=== PATIENT | male | born 1980 | race Caucasian/White ===

== ENCOUNTER 2022-03-01 16:29 | Emergency (ER) | payer SELFPAY ==
[~2022-03-01] VITALS: Ht 172.7 cm; Wt 108.0 kg
[2022-03-01] MEDS ORDERED: LORAZEPAM 1MG TABLET PO ONE (17:30)
[2022-03-01] MEDS ORDERED: LORAZEPAM 1MG TABLET PO NR (17:59)
[2022-03-01 18:04] LABS: BASOPHILS % 0.2 % (0.0-2.0); EOSINOPHILS % 0.1 % (0.0-5.0); HEMATOCRIT. 42.1 % (42.0-52.0); HEMOGLOBIN. 14.5 g/dL (14.0-18.0); LYMPHOCYTES % 19.3 % (20.0-50.0); MEAN CORPUSCULAR HEMOGLOBIN 29.9 pg (28.0-32.0); MEAN CORPUSCULAR VOLUME 86.8 fL (80.0-94.0); MEAN PLATELET VOLUME 7.2 fl (7.4-10.4); MONOCYTES % 12.2 % (2.0-8.0); NEUTROPHILS % 68.2 % (40.0-76.0); PLATELET 399 x1000/uL (130-400); RED BLOOD CELL COUNT 4.86 mill/uL (4.7-6.1); RED CELL DISTRIBUTION WIDTH 13.3 % (11.6-14.6)
[2022-03-01 18:13] LABS: CHLORIDE 93 mEq/L (98-107)
[2022-03-01 18:21] LABS: ETHANOL BLOOD < 10 mg/dL
[2022-03-01] MEDS ORDERED: POTASSIUM CHLORIDE 20MEQ TABLET SR PO ONE (18:45)
[2022-03-01] MEDS ORDERED: ONDANSETRON 4MG ODT PO ONE (18:45)
[2022-03-01] MEDS ORDERED: ONDANSETRON 4MG ODT PO NR (19:30)
[2022-03-01] MEDS ORDERED: POTASSIUM CHLORIDE 20MEQ TABLET SR PO NR (19:30)
[2022-03-01] MEDS ORDERED: LORAZEPAM 0.5MG TABLET PO ONE (21:00)
[2022-03-01] MEDS ORDERED: LORAZEPAM 1MG TABLET PO SCH (23:30)
[2022-03-01 23:50] VITALS: BP 124/93
== END 2022-03-01 23:59 | disposition home or self-care (01) ==
LOC: ER 16:29
DX: T43.621A Poisoning by amphetamines, accidental (unintentional), initial encounter (principal); Y92.89 Other specified places as the place of occurrence of the external cause; R00.2 Palpitations; E87.6 Hypokalemia; F17.290 Nicotine dependence, other tobacco product, uncomplicated; E11.9 Type 2 diabetes mellitus without complications; I10 Essential (primary) hypertension
CPT/HCPCS: 36415; 80053; 80320; 85025; 93005; 99284; Q0162; G0480

== ENCOUNTER 2022-06-29 22:24 | Emergency (ER) | payer SELFPAY | END 2022-06-29 23:30 | disposition left against medical advice (07) | LOC: ER 22:24 | DX: Z53.21 Procedure and treatment not carried out due to patient leaving prior to being seen by health care provider (principal) ==

== ENCOUNTER 2023-01-30 14:49 | Emergency (ER) | payer OTHER ==
[~2023-01-30] VITALS: Ht 170.2 cm; Wt 109.1 kg
[2023-01-30] MEDS ORDERED: LORAZEPAM 1MG TABLET PO ONE (15:30)
[2023-01-30 16:08] LABS: *AMPHETAMINES SCREEN URINE PRESUMTIVE POSITIVE (NEGATIVE); *BARBITURATES SCREEN URINE NEGATIVE (NEGATIVE); *BENZODIAZEPINES SCREEN URINE NEGATIVE (NEGATIVE); *COCAINE SCREEN URINE NEGATIVE (NEGATIVE); CANNABINOID URINE SCREEN NEGATIVE (NEGATIVE); METHADONE URINE SCREEN NEGATIVE (NEGATIVE); OPIATES URINE SCREEN NEGATIVE (NEGATIVE); PHENCYCLIDINE URINE SCREEN NEGATIVE (NEGATIVE)
[2023-01-30] MEDS ORDERED: LORA-250 MT (18:12)
[2023-01-30 18:32] VITALS: BP 153/78
== END 2023-01-30 18:32 | disposition home or self-care (01) ==
LOC: ER 14:58
DX: T43.621A Poisoning by amphetamines, accidental (unintentional), initial encounter (principal); Y92.89 Other specified places as the place of occurrence of the external cause; R07.89 Other chest pain; E11.9 Type 2 diabetes mellitus without complications; I10 Essential (primary) hypertension
CPT/HCPCS: 80305; 99283

== ENCOUNTER 2023-01-31 14:10 | Emergency (ER) | payer OTHER ==
[~2023-01-31] VITALS: Ht 167.6 cm; Wt 82.0 kg
[~2023-01-31 14:10] MED LIST: LORA-250 MT
[2023-01-31 14:41] VITALS: BP 145/100
== END 2023-01-31 15:20 | disposition home or self-care (01) ==
LOC: ER 14:10
DX: F15.10 Other stimulant abuse, uncomplicated (principal); F41.9 Anxiety disorder, unspecified; E11.9 Type 2 diabetes mellitus without complications; I10 Essential (primary) hypertension
CPT/HCPCS: 99281

== ENCOUNTER 2023-05-14 12:43 | Emergency (ER) | payer BC, OTHER ==
[~2023-05-14] VITALS: Ht 177.8 cm; Wt 80.0 kg
[2023-05-14 12:44] VITALS: O2SAT 99
[2023-05-14] MEDS ORDERED: KETOROLAC 30MG/ML VIAL IV STA (13:14)
[2023-05-14] MEDS ORDERED: SODIUM CHLORIDE 0.9% 1,000 ML IV ONE ×2 (13:15→16:15)
[2023-05-14] MEDS ORDERED: LORAZEPAM 2MG/ML CPJ IV ONE ×2 (13:30→17:45)
[2023-05-14 13:47] LABS: HEMATOCRIT. 41.4 % (42.0-52.0); HEMOGLOBIN. 14.5 g/dL (14.0-18.0); MEAN CORPUSCULAR HEMOGLOBIN 29.4 pg (28.0-32.0); MEAN PLATELET VOLUME 7.5 fl (7.4-10.4); PLATELET 322 x1000/uL (130-400); RED BLOOD CELL COUNT 4.93 mill/uL (4.7-6.1); RED CELL DISTRIBUTION WIDTH 15.3 % (11.6-14.6); WHITE BLOOD COUNT 14.3 x1000/uL (4.5-11.0)
[2023-05-14 13:51] LABS: DIFFERENTIAL COMMENT 1
[2023-05-14 13:53] LABS: CHLORIDE 99 mEq/L (98-107); INDEX HEMOLYSI 1 (1-3); INDEX ICTERIC 1 (1-4); INDEX LIPEMIC 1 (1-3); POTASSIUM 3.7 mEq/L (3.5-5.1); SODIUM 131 mEq/L (136-145)
[2023-05-14 14:10] LABS: ACETAMINOPHEN <2 ug/mL ug/mL (10-30); ALANINE AMINOTRANSFERASE 85 IU/L (13-61); ALBUMIN 4.2 g/dL (3.4-5.0); ASPARTATE AMINOTRANSFERASE 68 IU/L (15-37); CALCIUM 9.1 mg/dL (8.5-10.1); CARBON DIOXIDE 24 mEq/L (21-32); CREATININE 0.8 mg/dL (0.6-1.3); ETHANOL BLOOD < 10 mg/dL (-10); GLUCOSE 207 mg/dL (70-105); PROTEIN TOTAL 8.7 g/dL (6.0-8.3); UREA NITROGEN BLOOD 14 mg/dL (7-21)
[2023-05-14 14:16] LABS: PLATELET ESTIMATE NORMAL
[2023-05-14 17:36] VITALS: TEMP 98
[2023-05-14 20:20] VITALS: BP 130/80; PULSE 98; RESP 18
== END 2023-05-14 20:22 | disposition home or self-care (01) ==
LOC: ER 12:43
DX: F19.10 Other psychoactive substance abuse, uncomplicated (principal); M79.89 Other specified soft tissue disorders; M79.673 Pain in unspecified foot; E11.9 Type 2 diabetes mellitus without complications; I10 Essential (primary) hypertension; F15.10 Other stimulant abuse, uncomplicated
CPT/HCPCS: 80053; 80307; 80329; 80320; 83735; 85025; 36415; 93005; 96361; 96374; 96375; 96376; 99285; J1885; J2060; J7030; Z7610 ×2; G0480

== ENCOUNTER 2023-08-31 19:13 | Emergency (ER) | payer BC ==
[~2023-08-31] VITALS: Ht 170.2 cm; Wt 113.1 kg
[2023-08-31 19:34] VITALS: O2SAT 99
[2023-08-31 20:40] LABS: BASOPHILS % 0.3 % (0.0-2.0); EOSINOPHILS % 0.3 % (0.0-5.0); HEMATOCRIT. 45.1 % (42.0-52.0); HEMOGLOBIN. 15.8 g/dL (14.0-18.0); LYMPHOCYTES % 24.4 % (20.0-50.0); MEAN CORPUSCULAR HEMOGLOBIN 29.8 pg (28.0-32.0); MEAN PLATELET VOLUME 7.4 fl (7.4-10.4); MONOCYTES % 12.8 % (2.0-8.0); NEUTROPHILS % 62.2 % (40.0-76.0); PLATELET 328 x1000/uL (130-400); RED CELL DISTRIBUTION WIDTH 13.7 % (11.6-14.6); WHITE BLOOD COUNT 10.3 x1000/uL (4.5-11.0)
[2023-08-31 20:49] LABS: PARTIAL THROMBOPLASTIN TIME 30.4 sec (23.4-31.0); PROTHROMBIN TIME 10.6 sec (9.6-11.0)
[2023-08-31 20:59] LABS: ALANINE AMINOTRANSFERASE 35 IU/L (10-49); ALBUMIN 4.5 g/dL (3.2-4.8); ASPARTATE AMINOTRANSFERASE 56 IU/L (<34); BILIRUBIN TOTAL 1.9 mg/dL (0.1-1.0); CALCIUM 9.6 mg/dL (8.7-10.4); CARBON DIOXIDE 28 mEq/L (21-32); CHLORIDE 95 mEq/L (98-107); CREATININE 0.8 mg/dL (0.6-1.3); GLUCOSE 101 mg/dL (70-105); POTASSIUM 4.1 mEq/L (3.5-5.1); PROTEIN TOTAL 7.9 g/dL (6.0-8.3); SODIUM 131 mEq/L (136-145); TROPONIN I HIGH SENSITIVITY 8 ng/L (3.0-53)
[2023-08-31 21:05] LABS: CLARITY URINE CLEAR (CLEAR); COLOR URINE YELLOW (YELLOW); GLUCOSE URINE NEGATIVE (NEGATIVE); KETONES URINE NEGATIVE (NEGATIVE); LEUKOCYTE ESTERASE URINE NEGATIVE (NEGATIVE); NITRITE URINE NEGATIVE (NEGATIVE); OCCULT BLOOD URINE NEGATIVE (NEGATIVE); PROTEIN URINE NEGATIVE (NEGATIVE); SPECIFIC GRAVITY URINE 1.002 (1.005-1.030); UROBILINOGEN URINE 0.2 E.U./dL (0.2-1.0)
[2023-08-31 21:17] LABS: *AMPHETAMINES SCREEN URINE NEGATIVE (NEGATIVE); *BARBITURATES SCREEN URINE NEGATIVE (NEGATIVE); *BENZODIAZEPINES SCREEN URINE NEGATIVE (NEGATIVE); *COCAINE SCREEN URINE NEGATIVE (NEGATIVE); CANNABINOID URINE SCREEN NEGATIVE (NEGATIVE); ECSTASY MDMA SCREEN URINE NEGATIVE (NEGATIVE); METHADONE URINE SCREEN Neg (NEGATIVE); OPIATES URINE SCREEN NEGATIVE (NEGATIVE); PHENCYCLIDINE URINE SCREEN NEGATIVE (NEGATIVE)
[2023-08-31 21:33] LABS: UREA NITROGEN BLOOD < 5 mg/dL (9-23)
[2023-09-01] VITALS: BP 108/58; PULSE 97; RESP 18; TEMP 98.2
== END 2023-09-01 02:42 | disposition home or self-care (01) ==
LOC: ER 19:13
DX: F15.10 Other stimulant abuse, uncomplicated (principal); I10 Essential (primary) hypertension
CPT/HCPCS: 36415; 71045; 80053; 80305; 81003; 84484; 85025; 93005; 99285

== ENCOUNTER 2023-09-09 02:22 | Emergency (ER) | payer SELFPAY ==
[~2023-09-09] VITALS: Ht 170.2 cm; Wt 113.0 kg
[2023-09-09 02:33] VITALS: BP 137/99; PULSE 88; RESP 18; TEMP 98.5; O2SAT 100
[2023-09-09 03:56] LABS: BASOPHILS % 0.2 % (0.0-2.0); EOSINOPHILS % 0.2 % (0.0-5.0); HEMATOCRIT. 43.8 % (42.0-52.0); HEMOGLOBIN. 15.5 g/dL (14.0-18.0); LYMPHOCYTES % 18.3 % (20.0-50.0); MEAN CORPUSCULAR HEMOGLOBIN 29.6 pg (28.0-32.0); MEAN CORPUSCULAR HGB CONC 35.4 g/dL (31.0-37.0); MEAN CORPUSCULAR VOLUME 83.6 fL (80.0-94.0); MEAN PLATELET VOLUME 7.4 fl (7.4-10.4); MONOCYTES % 8.7 % (2.0-8.0); NEUTROPHILS % 72.6 % (40.0-76.0); PLATELET 325 x1000/uL (130-400); RED BLOOD CELL COUNT 5.24 mill/uL (4.7-6.1); RED CELL DISTRIBUTION WIDTH 13.7 % (11.6-14.6)
[2023-09-09 04:06] LABS: PROTHROMBIN TIME 10.9 sec (9.6-11.0)
[2023-09-09 04:11] LABS: DIFFERENTIAL COMMENT 1
[2023-09-09 05:12] LABS: ALANINE AMINOTRANSFERASE 27 IU/L (10-49); ALBUMIN 4.3 g/dL (3.2-4.8); ASPARTATE AMINOTRANSFERASE 26 IU/L (<34); BILIRUBIN TOTAL 0.7 mg/dL (0.1-1.0); CALCIUM 9.2 mg/dL (8.7-10.4); CARBON DIOXIDE 26 mEq/L (21-32); CHLORIDE 96 mEq/L (98-107); CREATININE 0.9 mg/dL (0.6-1.3); GLUCOSE 124 mg/dL (70-105); POTASSIUM 3.2 mEq/L (3.5-5.1); PROTEIN TOTAL 7.3 g/dL (6.0-8.3); SODIUM 134 mEq/L (136-145)
[2023-09-09 05:20] LABS: TROPONIN I HIGH SENSITIVITY < 4 ng/L (3.0-53); UREA NITROGEN BLOOD < 5 mg/dL (9-23)
== END 2023-09-09 09:05 | disposition left against medical advice (07) ==
LOC: ER 02:34
DX: R07.89 Other chest pain (principal); Z53.21 Procedure and treatment not carried out due to patient leaving prior to being seen by health care provider
CPT/HCPCS: 36415; 71045; 80053; 83880; 84484; 85025; 93005; 99281

== ENCOUNTER 2023-10-07 07:24 | Emergency (ER) | payer OTHER ==
[~2023-10-07] VITALS: Ht 177.8 cm; Wt 100.0 kg
[2023-10-07 07:29] VITALS: TEMP 97.9; O2SAT 100
[2023-10-07 08:34] LABS: BASOPHILS % 0.2 % (0.0-2.0); EOSINOPHILS % 0.1 % (0.0-5.0); HEMATOCRIT. 43.5 % (42.0-52.0); LYMPHOCYTES % 11.2 % (20.0-50.0); MEAN CORPUSCULAR HEMOGLOBIN 29.6 pg (28.0-32.0); MEAN CORPUSCULAR HGB CONC 34.5 g/dL (31.0-37.0); MEAN CORPUSCULAR VOLUME 85.9 fL (80.0-94.0); MEAN PLATELET VOLUME 7.1 fl (7.4-10.4); MONOCYTES % 8.3 % (2.0-8.0); NEUTROPHILS % 80.2 % (40.0-76.0); PLATELET 374 x1000/uL (130-400); RED BLOOD CELL COUNT 5.06 mill/uL (4.7-6.1); RED CELL DISTRIBUTION WIDTH 14.3 % (11.6-14.6); WHITE BLOOD COUNT 11.2 x1000/uL (4.5-11.0)
[2023-10-07 08:48] LABS: ACETAMINOPHEN < 2 ug/mL (10-30); ALANINE AMINOTRANSFERASE 28 IU/L (10-49); ALBUMIN 4.3 g/dL (3.2-4.8); ASPARTATE AMINOTRANSFERASE 29 IU/L (<34); CALCIUM 8.9 mg/dL (8.7-10.4); CARBON DIOXIDE 28 mEq/L (21-32); CHLORIDE 90 mEq/L (98-107); CREATININE 0.8 mg/dL (0.6-1.3); GLUCOSE 189 mg/dL (70-105); POTASSIUM 3.1 mEq/L (3.5-5.1); PROTEIN TOTAL 7.5 g/dL (6.0-8.3); SODIUM 123 mEq/L (136-145); UREA NITROGEN BLOOD 8 mg/dL (9-23)
[2023-10-07 08:51] LABS: ETHANOL BLOOD < 10 mg/dL (<10)
[2023-10-07 10:07] LABS: CLARITY URINE CLOUDY (CLEAR); COLOR URINE DARK YELLOW (YELLOW); GLUCOSE URINE TRACE (NEGATIVE); KETONES URINE 1+ (NEGATIVE); LEUKOCYTE ESTERASE URINE TRACE (NEGATIVE); NITRITE URINE NEGATIVE (NEGATIVE); OCCULT BLOOD URINE NEGATIVE (NEGATIVE); PH URINE 7.5 (4.5-8.0); PROTEIN URINE 1+ (NEGATIVE); SPECIFIC GRAVITY URINE 1.031 (1.005-1.030)
[2023-10-07] MEDS ORDERED: LORAZEPAM 1MG TABLET PO ONE (10:15)
[2023-10-07 10:23] LABS: BACTERIA URINE FEW; MUCUS URINE 2+ /lpf (NONE/TRACE); RBC URINE 0-2 /hpf (0-2); SQUAMOUS EPITHELIAL CELL URINE FEW /lpf (RARE/1+); WBC URINE 0-2 /hpf (0-2); YEAST URINE NONE SEEN
[2023-10-07 10:47] VITALS: BP 120/70; PULSE 90; RESP 17
[2023-10-07 13:44] LABS: *AMPHETAMINES SCREEN URINE PRESUMPTIVE POSITIVE (NEGATIVE); *BARBITURATES SCREEN URINE NEGATIVE (NEGATIVE); *BENZODIAZEPINES SCREEN URINE NEGATIVE (NEGATIVE); *COCAINE SCREEN URINE NEGATIVE (NEGATIVE); ECSTASY MDMA SCREEN URINE CONF.TEST INDICATED (NEGATIVE); METHADONE URINE SCREEN Neg (NEGATIVE); OPIATES URINE SCREEN NEGATIVE (NEGATIVE); PHENCYCLIDINE URINE SCREEN NEGATIVE (NEGATIVE)
== END 2023-10-07 10:49 | disposition home or self-care (01) ==
LOC: ER 07:24
DX: E87.1 Hypo-osmolality and hyponatremia (principal); E11.65 Type 2 diabetes mellitus with hyperglycemia; I10 Essential (primary) hypertension; F15.10 Other stimulant abuse, uncomplicated; Z68.31 Body mass index [BMI] 31.0-31.9, adult
CPT/HCPCS: 36415; 80053; 80305; 80307; 80320; 80329; 81003; 85025; 93005; 99284; G0480